=== PATIENT | male | born 1930 | race Caucasian/White ===

== ENCOUNTER 2017-02-18 17:42 | Emergency (ER) | payer MEDICARE, OTHER ==
[~2017-02-18] VITALS: Ht 172.7 cm; Wt 77.0 kg
[~2017-02-18 17:42] MED LIST: CLOP75 PO; GLYB1TAB50 PO; LISI-591 PO
[2017-02-18 17:50] VITALS: BP_SYST 190; BP_DIAS 102; BP_DIAS 2; PULSE 69; RESP 16; TEMP 98.8; O2SAT 98
[2017-02-18] MEDS ORDERED: GLIP5TAB8 PO (18:09)
[2017-02-18] MEDS ORDERED: LISI-519 PO (18:09)
[2017-02-18] MEDS ORDERED: CITA10TA4 PO (18:09)
[2017-02-18] MEDS ORDERED: PLAV75TA29 PO (18:12)
[2017-02-18] MEDS ORDERED: AMLO5TAB2 PO (18:12)
--- NOTE | 2017-02-18 18:42 | PD ---
HPI Chief Complaint: Fall Time Seen by Provider: 18:34 Travel History International Travel<30 days: No Contact w/Intl Traveler<30days: No Traveled to known affect area: No History of Present Illness HPI 86-year-old male complains of laceration the back of the head. Patient states that he fell today. He has history of frequent fall. Patient denies loss of consciousness. Patient denies any headache or neck pain. Patient denies any chest pain or shortness of breath. Patient denies abdominal pain. Patient denies any focal weakness or numbness of extremity. Patient's not up-to-date with TD booster. Patient's on Plavix. PFSH Past Medical History Hx Anticoagulant Therapy: Yes Blood Disorders: No Cancer: No Cerebrovascular Accident: Yes Dementia: Yes Diabetes: Yes (type 2) Patient Takes Glucophage: Yes Endocrine: Yes GERD: Yes Genitourinary: Yes Hypertension: Yes Immune Disorder: No Musculoskeletal: Yes Neurologic: Yes Psychiatric: No Reproductive: No Respiratory: Yes Tetanus Vaccination: < 5 Years Influenza Vaccination: Yes Past Surgical History Surgical History: No Previous Surgery Body Medical Devices: [employer] LENS Pacemaker: Yes Social History Alcohol Use: Yes (SOCIALLY- wine) Tobacco Use: No (quit 20 yrs ago ) Substance Use: No Allergies-Medications (Allergen,Severity, Reaction): Coded Allergies: No Known Allergies (Unverified , 02/18/17) Reported Meds & Prescriptions Reported Meds & Active Scripts Active Reported Amlodipine (Amlodipine Besylate) 5 Mg Tab 5 Mg PO DAILY Plavix (Clopidogrel Bisulfate) 75 Mg Tab 75 Mg PO DAILY Citalopram (Citalopram Hydrobromide) 10 Mg Tab 10 Mg PO HS Glipizide 5 Mg Tab 2.5 Mg PO DAILYAC Take 30 minutes before a meal Lisinopril 5 Mg Tab 5 Mg PO DAILY Review of Systems General / Constitutional: No: Fever Eyes: No: Visual changes HENT: No: Headaches Cardiovascular: No: Chest Pain or Discomfort Respiratory: No: Shortness of Breath Gastrointestinal: No: Abdominal Pain Genitourinary: No: Dysuria Musculoskeletal: No: Pain Skin: No Rash Neurologic: No: Weakness Psychiatric: No: Depression Endocrine: No: Polydipsia Hematologic/Lymphatic: No: Easy Bruising Physical Exam Narrative GENERAL: Well-nourished, well-developed patient. SKIN: Focused skin assessment warm/dry. HEAD: Normocephalic. Patient has 3 cm scalp laceration on top of the head. No active bleeding. EYES: No scleral icterus. No injection or drainage. Pupils 2 mm equal reactive. NECK: Supple, trachea midline. No JVD or lymphadenopathy. No neck tenderness. CARDIOVASCULAR: Regular rate and rhythm without murmurs, gallops, or rubs. RESPIRATORY: Breath sounds equal bilaterally. No accessory muscle use. GASTROINTESTINAL: Abdomen soft, non-tender, nondistended. MUSCULOSKELETAL: No cyanosis, or edema. BACK: Nontender without obvious deformity. No CVA tenderness. Neurologic exam: Patient's awake and alert oriented to place and person. No obvious local neurological deficit. Data Data Last Documented VS Vital Signs Date Time Temp Pulse Resp B/P (MAP) Pulse Ox O2 Delivery O2 Flow Rate FiO2 02/18/17 19:13 16 97 Room Air 02/18/17 19:13 77 168/92 (117) 02/18/17 17:50 98.8 Orders Orders Tetanus/Diphtheria Tox Adult (Tetanus/Di (02/18/17 18:45) Lidocai-Epi 1%-1:100,000 Inj (Xylocaine- (02/18/17 18:45) Ct Brain W/O Iv Contrast(Rout) (02/18/17 18:36) Lidocai-Epi 2%-1:100,000 Inj (Xylocaine- (02/18/17 19:00) MDM Medical Decision Making Medical Screen Exam Complete: Yes Emergency Medical Condition: Yes Interpretation(s) [address] of the brain shows no acute pathology. Old chronic changes. Differential Diagnosis Differential diagnosis including scalp laceration, skull fracture, intracranial hemorrhage. Narrative Course 86-year-old male with scalp laceration. Patient is on Plavix. Procedures Procedure Narrative LACERATION LOCATION: Scalp LENGTH: 3 cm NUMBER OF STITCHES/TERRANCE: 6 REPAIR: The area of the laceration was prepped with Betadine and sterilely draped. The laceration was infiltrated with 1% lidocaine with epinephrine. The wound was copiously irrigated and explored without evidence of foreign body , tendon injury or neurovascular injury. The wound was closed using terrance. This was a single layer repair. A sterile dressing was applied. The patient was advised to keep the dressing clean and dry. Patient tolerated the procedure well. Diagnosis Primary Impression: Scalp laceration Qualified Codes: S01.01XA - Laceration without foreign body of scalp, initial encounter Additional Impression: Closed head injury Qualified Codes: S09.90XA - Unspecified injury of head, initial encounter Patient Instructions: General Instructions Additional Instructions: Wound care daily. Return in 10 days for staple removal. Head trauma instructions given. Med/Other Pt SpecificInfo: No Change to Meds Disposition: 01 DISCHARGE HOME Condition: Stable Sharad Cruz MD Feb 18, 2017 18:42
[2017-02-18] MEDS ORDERED: LIDOCAINE 1%/EPINEPHrine 1:100,000 SOLN 20 ML VIAL INFIL ONE (18:45)
[2017-02-18] MEDS ORDERED: TETANUS/DIPHTHERIA TOXOID ADULT 0.5 ML VIAL IM ONE (18:45)
[2017-02-18] MEDS ORDERED: LIDOCAINE 2%/EPINEPHrine 1:100,000 50ML MDV NERV BLOCK ONE (19:00)
[2017-02-18 19:13] VITALS: BP 168/92; PULSE 77; RESP 16; O2SAT 97
--- NOTE | 2017-02-18 20:03 | RADRPT ---
EXAM DATE/TIME: 02/18/2017 19:30 [facility] COMPARISON: No previous studies available for comparison. INDICATIONS : Trauma. Fall. RADIATION DOSE: 58.57 CTDIvol (mGy) MEDICAL HISTORY : Cerebrovascular disease. Dementia. Diabetes mellitus type 2.Hypertension. SURGICAL HISTORY : Pacemaker. TURP ENCOUNTER: Initial ACUITY: 1 day PAIN SCALE: 4/10 LOCATION: cranial TECHNIQUE: Multiple contiguous axial images were obtained of the head. Using automated exposure control and adj ustment of the mA and/or kV according to patient size, radiation dose was kept as low as reasonably a chievable to obtain optimal diagnostic quality images. DICOM format image data is available electro nically for review and comparison. FINDINGS: No acute intracranial hemorrhage, mass effect or shift. Ventricles mildly prominent secondary to atro phy. Remote infarct right cerebellar hemisphere. CONCLUSION: 1. No acute findings. Remote infarct right cerebellar hemisphere. Right-sided scalp laceration. Kaiden Padron MD on February 18, 2017 at 19:55 Board Certified Radiologist. This report was verified electronically.
[2017-02-18 20:59] VITALS: BP 182/99
== END 2017-02-18 20:59 | disposition home or self-care (01) ==
LOC: PHED 17:42
DX: S01.01XA Laceration without foreign body of scalp, initial encounter (principal); S09.90XA Unspecified injury of head, initial encounter; E11.9 Type 2 diabetes mellitus without complications; I10 Essential (primary) hypertension; F03.90 Unspecified dementia, unspecified severity, without behavioral disturbance, psychotic disturbance, mood disturbance, and anxiety; W19.XXXA Unspecified fall, initial encounter; Z91.81 History of falling; Z23 Encounter for immunization; Z79.01 Long term (current) use of anticoagulants; Z79.84 Long term (current) use of oral hypoglycemic drugs; Z86.79 Personal history of other diseases of the circulatory system; Z87.19 Personal history of other diseases of the digestive system; Z87.448 Personal history of other diseases of urinary system; Z87.39 Personal history of other diseases of the musculoskeletal system and connective tissue; Z86.69 Personal history of other diseases of the nervous system and sense organs
CPT/HCPCS: 12002; 70450; 90471; 90714